=== PATIENT | female | born 1975 | race Caucasian/White ===

== ENCOUNTER 2017-03-03 20:55 | Emergency (ER) | payer BC ==
[2017-03-03 21:17] LABS: BASOPHILS 0.1 % (0.0-2.0); EOSINOPHILS# 0.1 X 10^3uL (0.0-0.4); HEMATOCRIT 42.2 % (36.0-48.0); HEMOGLOBIN 14.6 g/dL (12.0-16.0); LYMPHOCYTES 23.2 % (20.0-40.0); LYMPHOCYTES# 2.5 X 10^3uL (0.8-3.8); MEAN CELL VOLUME 89.9 fL (80.0-100.0); MEAN CORPUS. HGB CONCENTRATION 34.6 g/dL (32.0-36.0); MEAN CORPUSCULAR HEMOGLOBIN 31.1 pg (29.0-35.0); MEAN PLATELET VOLUME 9.9 fL (7.4-10.4); MONOCYTES 5.1 % (2.0-10.0); MONOCYTES# 0.5 X 10^3uL (0.2-1.0); NEUTROPHILS 70.6 % (54.0-75.0); NEUTROPHILS# 7.6 X 10^3uL (2.6-6.7); PLATELET COUNT 278 X 10^3uL (130-440); RED BLOOD COUNT 4.69 X 10^6uL (4.20-6.10); WHITE BLOOD COUNT 10.7 X 10^3uL (3.9-10.7)
[2017-03-03 21:21] LABS: ALBUMIN 4.8 g/dL (3.5-5.0); ALKALINE PHOSPHATASE 94 U/L (38-126); ALT 59 U/L (9-52); AST 48 U/L (14-36); BILIRUBIN, DIRECT 0.3 mg/dL (0.0-0.4); BILIRUBIN, TOTAL 1.2 mg/dL (0.2-1.3); BLOOD UREA NITROGEN 9 mg/dL (7-17); CALCIUM 10.1 mg/dL (8.4-10.2); CHLORIDE 99 mmol/L (98-107); EST GLOMERULAR FILTRATION RATE > 60 mL/min; LIPASE 149 U/L (23-300); POTASSIUM 4.3 mmol/L (3.5-5.1); SODIUM 142 mmol/L (137-145); TOTAL PROTEIN 8.9 g/dL (6.3-8.2)
[2017-03-03 21:23] LABS: ACETAMINOPHEN < 10.0 ug/mL (10.0-30.0); ETHYL ALCOHOL < 10 mg/dL (<10); GLUCOSE 261 mg/dL (70-100); SALICYLATE < 1.0 mg/dL (<20.0)
[2017-03-03] MEDS ORDERED: DIPHENHYDRAMINE 50 MG/ML VIAL ONE (21:23)
[2017-03-03] MEDS ORDERED: HALOPERIDOL 5 MG/ML VIAL ONE (21:23)
[2017-03-03 21:51] LABS: THYROID STIMULATING HORMONE 0.61 uIU/mL (0.47-4.68)
--- NOTE | 2017-03-03 23:03 | ER NURSING DOCUMENTATION ---
Nurse's Notes [facility] Name:Cindy Montero Age:41 yrs Sex:Female :1975 Arrival Date:03/03/2017 Time:20:54 BedTrauma-A Private MD:No PCP, Identified Diagnosis:Marijuana Abuse Presentation: 03/03 20:56 Acuity: MARIBELL 2 rh 20:56 Presenting complaint: Father states: Pt took 6 pieces of a chocolate edible and 1 rh gummie bear for a total of 70mg of THC. Transition of care: Home. Care prior to arrival: IV initiated. Glucose check. 234 IV Fluids given by EMS NS 500 ml Labs. 20:56 Method Of Arrival: EMS: 410 rh Triage Assessment: 21:00 General: Appears uncomfortable, Behavior is crying. Pain: Denies pain. EENT: Oral rh mucosa is dry. Neuro: Level of Consciousness is awake, Oriented to person, place. Cardiovascular: Capillary refill < 3 seconds Chest pain is denied. Respiratory: Airway is patent Respiratory effort is even, unlabored, Respiratory pattern is regular, symmetrical. GI: Abdomen is obese. : No deficits noted. Derm: Skin is intact, is healthy with good turgor, Skin is pink, warm & dry. Historical: - Allergies: IODINEIODINE CONTAINING; PENICILLINS; NARCOTICS; - Home Meds: 1. trulicity 2. pregabalin 200 mg oral cap 1 cap 3. tizanidine oral 4. meloxicam oral - PMHx: Back Surgery ; Hypertension; CHRONIC BACK PAIN; - PSHx: NERVE STIMULATOR in BACK; Cholecysectomy; NECK SURGERY; - Tetanus: unknown. - Ebola Screening: : Patient negative for fever greater than or equal to 101.5 degrees Fahrenheit, and additional compatible Ebola Virus Disease symptoms. - Immunization history: Flu Vaccine < 1 year. - Social history: Smoking status: Patient states former smoker of tobacco. Screenin:02 Infectious Disease Risk None. Abuse screen: Denies threats or abuse. Denies injuries rh from another. Nutritional screening: No deficits noted. Assessment: 21:02 See Triage Assessment done by same RN. rh 21:58 Reassessment: PT is sleeping, . rh 22:33 Reassessment: Pt alert, awake and oriented.. rh Vital Signs: 21:01 BP 141 / 102; Pulse 105; Resp 22; Temp 98.6(TE); Pulse Ox 96% on R/A; rh 21:58 BP 100 / 64; Pulse 109; Resp 22; Pulse Ox 96% on R/A; rh 22:49 BP 119 / 67; Pulse 101; Resp 18; Pulse Ox 92% on R/A; Pain 0/10; rh ED Course: 20:54 Patient arrived in ED. em3 20:55 Notified ED Physician of patient's arrival and chief complaint. Dr. Castillo notified. rh 20:56 Asiya Keita is Primary Nurse. rh 20:56 Triage completed. rh 21:02 Valuables Remains with patient Patient has correct armband on for positive rh identification. Bed in low position. Call light in reach. Side rails up X2. Family accompanied patient. 21:02 Maintain field IV. Site clean & dry. Gauge & site: 20 G in the R AC. 21:03 Zack Castillo MD is Attending Physician. pa 21:45 No PCP, Identified is Private Physician. em3 22:33 Assisted to bedside commode. rh Administered Medications: 21:00 Drug: NS 0.9% 1000 ml; Route: IV; Rate: bolus; Site: right antecubital; rh 22:45 Follow up: IV Status: Completed infusion; IV Intake: 1000ml rh 21:18 Drug: Haldol 5 mg; Route: IVP; Site: right antecubital; fc 22:34 Follow up: Response: Anxiety decreased rh 21:18 Drug: Benadryl 25 mg; Route: IVP; Site: right antecubital; fc 22:34 Follow up: Response: No adverse reaction rh Intake: 22:45 IV: 1000ml; Total: 1000ml. rh 23:02 IV: 1000ml; Total: 2000ml. rh Outcome: 21:56 Discharge ordered by . pa 23:00 Discharged to home via wheelchair, with significant other. 23:00 Condition: improved 23:00 Discharge Assessment: Patient awake, alert and oriented x 3. No cognitive and/or functional deficits noted. Patient verbalized understanding of disposition instructions. 23:00 Discharge instructions given to patient, significant other, Instructed on discharge instructions, follow up and referral plans. Demonstrated understanding of instructions. 23:00 IV D/Robbin 23:02 Patient left the ED. 03/05 09:22 Discharge F/U Call: Unable to reach: no answer st Signatures: Sarah Beach, RN RN Zack Gimenez MD MD sc Meiklejohn, Eric em3 Hofsess, Rachel sarmad das
--- NOTE | 2017-03-03 23:03 | ER PHYSICIAN DOCUMENTATION ---
Physician Documentation [facility] Name:Cindy Montero Age:41 yrs Sex:Female :1975 Arrival Date:03/03/2017 Time:20:54 BedTrauma-A Private MD:No PCP, Identified ED Zack Walker Disposition: 03/03/17 21:56 Discharged to Home/Self Care. Impression: Marijuana Abuse. - Condition is Fair. - Discharge Instructions: Abuse, Cannabis - MARIJUANA ABUSE. - Medical Reconciliation form form. - Follow up: Private Physician; When: 4- 6 days; Reason: Recheck today's complaints, elevated transaminases. - Problem is new. - Symptoms have improved. HPI: 03/03 21:04 This 41 yrs old Female presents to ER via EMS with complaints of Drug Abuse. sc 21:04 The patient presents to the emergency department with anxiety, depression, paranoia, sc psychosis. Onset: The symptom(s)/episode began/occurred 2 hour(s) ago. The patient has not experienced similar symptoms in the past. took 70 mg thc edibles, first time user, no other recent illness or injury. Historical: - Allergies: IODINEIODINE CONTAINING; PENICILLINS; NARCOTICS; - Home Meds: 1. trulicity 2. pregabalin 200 mg oral cap 1 cap 3. tizanidine oral 4. meloxicam oral - PMHx: Back Surgery ; Hypertension; CHRONIC BACK PAIN; - PSHx: NERVE STIMULATOR in BACK; Cholecysectomy; NECK SURGERY; - Tetanus: unknown. - Ebola Screening: : Patient negative for fever greater than or equal to 101.5 degrees Fahrenheit, and additional compatible Ebola Virus Disease symptoms. - Immunization history: Flu Vaccine < 1 year. - Social history: Smoking status: Patient states former smoker of tobacco. ROS: 21:05 Constitutional: Negative for fever, chills, and weight loss. sc Eyes: Negative for injury, pain, redness, and discharge. ENT: Negative for injury, pain, and discharge. Neck: Negative for injury, pain, and swelling. Cardiovascular: Negative for chest pain, palpitations, and edema. Respiratory: Negative for shortness of breath, cough, wheezing, and pleuritic chest pain. Abdomen/GI: Negative for abdominal pain, nausea, vomiting, diarrhea, and constipation. Back: Negative for injury and pain. MS/Extremity: Negative for injury and deformity. Skin: Negative for injury, rash, and discoloration. 21:05 Neuro: Negative for headache, weakness, numbness, tingling, and seizure. sc 21:05 Psych: Positive for anxiety, depression. Exam: Head/Face: Normocephalic, atraumatic. Eyes: Pupils equal round and reactive to light, extra-ocular motions intact. Lids and lashes normal. Conjunctiva and sclera are non-icteric and not injected. Cornea within normal limits. Periorbital areas with no swelling, redness, or edema. ENT: Nares patent. No nasal discharge, no septal abnormalities noted. Tympanic membranes are normal and external auditory canals are clear. Oropharynx with no redness, swelling, or masses, exudates, or evidence of obstruction, uvula midline. Mucous membranes moist. Neck: Trachea midline, no thyromegaly or masses palpated, and no cervical lymphadenopathy. Supple, full range of motion without nuchal rigidity, or vertebral point tenderness. No meningismus. Chest/axilla: Normal chest wall appearance and motion. Nontender with no deformity. No lesions are appreciated. Cardiovascular: Regular rate and rhythm with a normal S1 and S2. No gallops, murmurs, or rubs. Normal PMI, no JVD. No pulse deficits. Respiratory: Lungs have equal breath sounds bilaterally, clear to auscultation and percussion. No rales, rhonchi or wheezes noted. No increased work of breathing, no retractions or nasal flaring. Abdomen/GI: Soft, non-tender, with normal bowel sounds. No distension or tympany. No guarding or rebound. No evidence of tenderness throughout. Back: No spinal tenderness. No costovertebral tenderness. Full range of motion. 21:05 Skin: Warm, dry with normal turgor. Normal color with no rashes, no lesions, and no sc evidence of cellulitis. 21:05 Constitutional: The patient appears anxious, in obvious distress, moderately distressed. 21:05 Psych: Behavior/mood is anxious, Affect is animated, Oriented to person, Patient has no thoughts/intents to harm self or others. Judgement / Insight is impaired. Vital Signs: 21:01 BP 141 / 102; Pulse 105; Resp 22; Temp 98.6(TE); Pulse Ox 96% on R/A; rh 21:58 BP 100 / 64; Pulse 109; Resp 22; Pulse Ox 96% on R/A; rh 22:49 BP 119 / 67; Pulse 101; Resp 18; Pulse Ox 92% on R/A; Pain 0/10; rh MDM: 21:03 Patient medically screened. me 21:07 Differential diagnosis: acute psychotic break, depression. Data reviewed: vital signs, me nurses notes, lab test result(s), and as a result, I will continue to observe the patient. 21:52 Counseling: I had a detailed discussion with the patient and/or guardian regarding: the me historical points, exam findings, and any diagnostic results supporting the discharge/admit diagnosis, lab results, the need for outpatient follow up, with the patient's primary care provider. ED course: Uncontrollable crying and paranoia treated successfully with haldol and benadryl and observation awaiting thc detox.. 03/03 21:18 Order name: CBC AUTO DIF, MDIF/RMOR IF IND EDMI 03/03 21:24 Interpretation: Normal. me 06 21:24 Order name: BASIC METABOLIC PANEL [facility] 03/03 21:24 Order name: HEPATIC PANEL [facility] 03/03 21:24 Order name: LIPASE EDMI 03/03 21:24 Order name: SALICYLATE [facility] 03/03 21:24 Order name: ETHYL ALCOHOL [facility] 03/03 21:24 Order name: ACETAMINOPHEN [facility] 03/03 21:52 Order name: THYROID STIMULATING HORMONE [facility] 03/03 21:03 Order name: Continuous Cardiac Monitoring; Complete Time: 21:04 03/03 21:03 Order name: I & O; Complete Time: 21:04 03/03 21:03 Order name: Iv Saline Lock; Complete Time: 21:04 08 21:03 Order name: NPO; Complete Time: 21:04 03/03 21:03 Order name: Pulse Ox Continuous; Complete Time: 21:04 03/03 21:03 Order name: Suicide Precautions; Complete Time: 21:04 Dispensed Medications: 21:00 Drug: NS 0.9% 1000 ml; Route: IV; Rate: bolus; Site: right antecubital; rh 22:45 Follow up: IV Status: Completed infusion; IV Intake: 1000ml rh 21:18 Drug: Haldol 5 mg; Route: IVP; Site: right antecubital; fc 22:34 Follow up: Response: Anxiety decreased rh 21:18 Drug: Benadryl 25 mg; Route: IVP; Site: right antecubital; fc 22:34 Follow up: Response: No adverse reaction rh Signatures: Zack Castillo MD MD me Asiya Keita sarmad das
== END 2017-03-03 23:03 | disposition home or self-care (01) ==
LOC: EEVIPCON 20:55 → ER 20:55
DX: F12.180 Cannabis abuse with cannabis-induced anxiety disorder (principal); I10 Essential (primary) hypertension; Z79.899 Other long term (current) drug therapy
CPT/HCPCS: 80048; 80076; 80307; 80320; 80329; 83690; 84443; 85025; 96361; 96374; 96375; 99283; A0425; A0427; J1200; J1630